=== PATIENT | female | born 1960 | race Two or more races ===

== ENCOUNTER 2021-09-21 12:15 | Emergency (ER) | payer BC ==
[~2021-09-21] VITALS: Ht 170.2 cm; Wt 77.1 kg
[2021-09-21] MEDS ORDERED: MICARDIS80 MG (12:34)
[2021-09-21] MEDS ORDERED: LEXAPRO20 MG (12:35)
== END 2021-09-21 14:43 | disposition home or self-care (01) ==
LOC: ER 12:15
DX: H10.212 Acute toxic conjunctivitis, left eye (principal); S05.02XA Injury of conjunctiva and corneal abrasion without foreign body, left eye, initial encounter; X58.XXXA Exposure to other specified factors, initial encounter; Y92.89 Other specified places as the place of occurrence of the external cause